=== PATIENT | female | born 1990 | race Caucasian/White ===

== ENCOUNTER 2021-03-21 16:11 | Emergency (ER) | payer OTHER, SELFPAY ==
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
--- NOTE | ~2021-03-21 | XR_ITS ---
EXAMINATION: XR thoracolumbar DATE: 03/21/2021 16:49 INDICATION: AP and lateral views of the thoracolumbar spine were obtained TECHNIQUE: AP and lateral views of the thoracolumbar spine were obtained. COMPARISON: None. FINDINGS: Alignment is normal from the midthoracic through the lower lumbar spine. Vertebral body and disc heig hts are normal. No fractures identified. Visualized lung bases are clear with no pleural effusion. He art size is normal. Normal bowel gas pattern. IMPRESSION: 1. Negative thoracolumbar radiographs. Reviewed, dictated and finalized at [facility].
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
[2021-03-21 16:24] VITALS: BP 120/70; PULSE 96; RESP 20; TEMP 36.8; O2SAT 99
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
[2021-03-21 17:06] VITALS: BP 141/84; PULSE 99; RESP 20; O2SAT 99
== END 2021-03-21 17:08 | disposition home or self-care (01) ==
PROVIDERS: Emergency Provider Emergency Medicine; PCP Family Medicine
DX: S16.1XXA Strain of muscle, fascia and tendon at neck level, initial encounter (principal); V89.2XXA Person injured in unspecified motor-vehicle accident, traffic, initial encounter
CPT/HCPCS: 72040; 72080; 73030; 99283; 99284